=== PATIENT | female | born 1970 | race Caucasian/White ===

== ENCOUNTER 2016-05-09 09:20 | Emergency (ER) | payer MEDICAID ==
[~2016-05-09] VITALS: Wt 73.0 kg
[2016-05-09] MEDS ORDERED: KETOROLAC 30 MG INJ IM STA (10:03)
--- NOTE | 2016-05-09 10:14 | ERD ---
ER Documentation Chief Complaint Date/Time DATE: 05/09/16 TIME: 10:09 Chief Complaint LEFT KNEE PAIN X 3 DAYS HPI This is a 46-year-old female presenting to the emergency department for left knee pain 3 days. No injury or fall. Patient states she started hearing a "cracking noise" while ambulating. No fever or chills. No redness or bruising. Patient has mild swelling to left knee and left calf. Patient states pain radiates down to left calf. Patient states she has a history of osteoarthritis specifically to right knee. Patient had prior surgery to right knee and uses a cane to ambulate. Denies numbness, tingling or loss of sensation. Patient is not taking any medications for pain. ROS All systems reviewed and are negative except as per history of present illness. Medications Home Meds Active Scripts Hydrocodone/Acetaminophen ([place] 5-325 Tablet) 1 Each Tablet, 1 TAB PO Q6H Y for PAIN, #10 TAB Prov:RICHARD MACHADO NP 05/09/16 Ibuprofen* (Motrin*) 600 Mg Tab, 600 MG PO Q6, #20 TAB Prov:RICHARD MACHADO NP 05/09/16 Allergies Allergies: Coded Allergies: No Known Drug Allergy (Verified Allergy, Unknown, 06/04/06) PMhx/Soc Hx Alcohol Use: No Hx Tobacco Use: No Physical Exam Vitals Vital Signs Date Time Temp Pulse Resp B/P Pulse Ox O2 Delivery O2 Flow Rate FiO2 05/09/16 11:19 98 05/09/16 09:26 98.0 75 18 147/76 99 Physical Exam Const: No acute distress, alert, oriented to person place and time peer Head: Atraumatic Eyes: Normal Conjunctiva ENT: Normal External Ears, Nose and Mouth. Neck: Full range of motion..~ No meningismus. Resp: Clear to auscultation bilaterally Cardio: Regular rate and rhythm, no murmurs Abd: Soft, non tender, non distended. Normal bowel sounds Skin: No petechiae or rashes Back: No midline or flank tenderness Ext: Mild swelling to left calf and anterior/posterior left knee. No erythema or ecchymosis. Patient has limited extension and flexion of left knee. No loss of sensation. Neur: Awake and alert Psych: Normal Mood and Affect Results 24 hrs Current Medications Medications (Trade) Dose Ordered Sig/Kelsey Route PRN Reason Start Time Stop Time Status Last Admin Dose Admin Ketorolac Tromethamine (Toradol) 30 mg ONCE STAT IM 05/09/16 10:03 05/09/16 10:05 DC 05/09/16 10:22 Procedures/MDM ED COURSE: The patient was stable throughout ED course. I kept the patient and/or family informed of laboratory and diagnostic imaging results throughout the ED course. Toradol given Imaging X-ray left knee Patient: KASEY ROSALES : 1970 Age: 46 Sex: F MR #: [id number] DOS: 05/09/16 1003 Ordering MD: RICHARD MACHADO NP Location: [facility] Room/Bed: PROCEDURE: Left knee x-ray CLINICAL INDICATION: left knee pain, no trauma TECHNIQUE: AP, lateral and oblique views of the left knee were obtained. COMPARISON: None FINDINGS: There is normal mineralization. No acute fracture or dislocation is seen. There are no significant degenerative changes. There is no joint effusion. There is no significant soft tissue swelling. IMPRESSION: Normal x-ray of the left knee. Venous ultrasound left lower extremity Patient: KASEY ROSALES : 1970 Age: 46 Sex: F MR #: [id number] DOS: 05/09/16 1003 Ordering MD: RICHARD MACHADO NP Location: [facility] Room/Bed: PROCEDURE: US Lower extremity Venous. CLINICAL INDICATION: Left leg pain TECHNIQUE: Multiple sonographic images of the left lower extremity deep venous system was obtained utilizing grayscale, color-flow, compressive sonography and doppler imaging with augmentation. The images were reviewed on a PACS workstation. COMPARISON: None. FINDINGS: There is normal compressibility and flow within the left common femoral, superficial femoral, posterior tibial, peroneal and popliteal veins. RPTAT: AA IMPRESSION: No sonographic evidence for deep venous thrombosis. MDM: 46-year-old female presents emergency department for left knee pain 3 days. No recent injury or fall. Patient has history of osteoarthritis to right knee. Has never had imaging done of left knee. Uses a cane to ambulate. Patient given Toradol IM while in the ED. x-ray left knee reviewed by radiologist as normal x-ray. Ultrasound lower extremity of the left leg reviewed by radiologist as no sonographic evidence for deep venous thrombosis. Patient states pain is tolerable at this time. Patient remains calm and comfortable throughout ED visit. Vital signs are stable. A knee immobilizer was applied while in the ED. Remains neurovascularly intact pre-and post splint application. Low suspicion for acute dislocation, fracture, compartment syndrome, cellulitis or DVT. Differential diagnosis includes but not limited to osteoarthritis, rheumatoid arthritis and tendinopathy. Patient is appropriate for outpatient management will be given prescription for ibuprofen and [place]. Instructed patient to follow-up with primary care provider in the next 2-3 days for reassessment and additional management. Return to ED for any high fever, chest pain, difficulty breathing, shortness breath, wheezing, vomiting, diarrhea, abdominal pain or any new or worsening symptoms. Patient verbalizes understanding. All questions answered at discharge. Kenyan translation use during this encounter. Departure Diagnosis: Primary Impression: Knee pain Laterality: left Chronicity: acute Qualified Code: M25.562 - Acute pain of left knee Condition: Stable RICHARD MACHADO NP May 09, 2016 10:14
--- NOTE | 2016-05-09 10:29 | RADRPT ---
PROCEDURE: Left knee x-ray CLINICAL INDICATION: left knee pain, no trauma TECHNIQUE: AP, lateral and oblique views of the left knee were obtained. COMPARISON: None FINDINGS: There is normal mineralization. No acute fracture or dislocation is seen. There are no significant degenerative changes. There is no joint effusion. There is no significant soft tissue swelling. IMPRESSION: Normal x-ray of the left knee. RPTAT:AAJJ Physician Jesús Date Time Electronically viewed and signed by Jeff Whitt Physician on 05/09/2016 10:28 RAFI/
--- NOTE | 2016-05-09 10:43 | RADRPT ---
PROCEDURE: US Lower extremity Venous. CLINICAL INDICATION: Left leg pain TECHNIQUE: Multiple sonographic images of the left lower extremity deep venous system was obtained utilizing grayscale, color-flow, compressive sonography and doppler imaging with augmentation. The images were reviewed on a PACS workstation. COMPARISON: None. FINDINGS: There is normal compressibility and flow within the left common femoral, superficial femoral, edge beader ior tibial, peroneal and popliteal veins. RPTAT: AA IMPRESSION: No sonographic evidence for deep venous thrombosis. .Sanya Levy MD, MD Date Time Electronically viewed and signed by .Sanya Levy MD, on 05/09/2016 10:43 .S/
[2016-05-09] MEDS ORDERED: IBUP-1542 PO (11:03)
[2016-05-09] MEDS ORDERED: HYDR-906 PO (11:03)
== END 2016-05-09 11:20 | disposition home or self-care (01) ==
LOC: FTE 09:20
DX: M25.562 Pain in left knee (principal)
CPT/HCPCS: 29505; 73562; 93971; 96372; J1885; Z7502